=== PATIENT | female | born 1950 | race Caucasian/White ===

== ENCOUNTER 2022-10-22 18:53 | Inpatient (IN) ==
[2022-10-22 19:34] LABS: Basophils % 0.6 % (0.0-0.8); Eosinophils # 0.1 10*3/uL (0.0-0.87); Eosinophils % 1.3 % (0.00-10.9); Hematocrit 39.3 VOL% (35.7-47.0); Hemoglobin 13.2 GM/DL (12.0-16.0); Immature Granulocytes % 0.6 %; Immature Granulocytes Absolute 0.04 #; Lymphocytes # 2.4 10*3/uL (1.4-4.0); Lymphocytes % 37.4 % (21.3-54.2); Mean Corpuscular HGB Conc 33.6 GM/DL (32-36); Mean Corpuscular Volume 90.6 FL (87-102); Mean Platelet Volume 12.1 FL (9.6-12.0); Monocytes # 0.6 10*3/uL (0.11-0.8); Monocytes % 8.6 % (1.7-12.7); Neutrophils % 51.5 % (38.7-73.9); Platelet Count 159 T/CUMM (130-400); Red Blood Count 4.34 MC/CUMM (3.8-5.5); Red Cell Distribution Width 12.6 % (9.3-17.3); White Blood Count 6.36 T/CUMM (4-12)
[2022-10-22 19:41] LABS: INR 0.9; PT Patient Result 10.3 SECS (10.1-12.1); Partial Thromboplastin Time 24.6 SECS (23.7-32.9)
[2022-10-22 19:56] LABS: Osmolality,Calculated 286.4 MOS/KG (273-304); Potassium 3.8 MMOL/L (3.5-5.1); Thyroid Stimulating Hormone 0.945 uIU/ml (0.358-3.74)
[2022-10-22] MEDS ORDERED: HEPARIN/NACL 0.9% 2 UNITS/ML 3,000 UNIT/1,500 ML BAG IV ONE (20:24)
[2022-10-22] MEDS ORDERED: fentaNYL 100 MCG/2 ML VIAL ONE (20:46)
[2022-10-22] MEDS ORDERED: MIDAZOLAM 2 MG/2 ML VIAL ONE (20:46)
[2022-10-22 20:57] VITALS: BP 184/61
[2022-10-22] MEDS ORDERED: hydrALAZINE 20 MG/1 ML VIAL IV PRN (22:38)
[2022-10-22 22:42] LABS: Basophils % 0.6 % (0.0-0.8); Eosinophils # 0.1 10*3/uL (0.0-0.87); Eosinophils % 0.9 % (0.00-10.9); Hematocrit 39.5 VOL% (35.7-47.0); Hemoglobin 13.2 GM/DL (12.0-16.0); Immature Granulocytes % 0.4 %; Immature Granulocytes Absolute 0.03 #; Lymphocytes # 2.4 10*3/uL (1.4-4.0); Lymphocytes % 34.7 % (21.3-54.2); Mean Corpuscular HGB Conc 33.4 GM/DL (32-36); Mean Corpuscular Volume 89.4 FL (87-102); Mean Platelet Volume 11.9 FL (9.6-12.0); Monocytes # 0.7 10*3/uL (0.11-0.8); Monocytes % 9.9 % (1.7-12.7); Neutrophils % 53.5 % (38.7-73.9); Platelet Count 163 T/CUMM (130-400); Red Blood Count 4.42 MC/CUMM (3.8-5.5); Red Cell Distribution Width 12.5 % (9.3-17.3); White Blood Count 6.77 T/CUMM (4-12)
[2022-10-22] MEDS ORDERED: ACETAMINOPHEN 325 MG TABLET PO PRN (22:42)
[2022-10-22] MEDS ORDERED: NITROGLYCERIN SL 0.4 MG TABLET SL PRN (23:00)
[2022-10-22] MEDS ORDERED: [UNRECOGNIZED DRUG - OTHER] PO PRN (23:00)
[2022-10-22 23:09] LABS: Calcium 9.4 MG/DL (8.5-10.1); Osmolality,Calculated 284.4 MOS/KG (273-304); Potassium 3.8 MMOL/L (3.5-5.1); Thyroid Stimulating Hormone 0.889 uIU/ml (0.358-3.74)
[2022-10-23] MEDS: INSULIN LISPRO 100 UNIT/ML SUBCUT SCH ×5 (00:50→23:35)
[2022-10-23] MEDS: MORPHINE 2 MG/1 ML SYRINGE IV PRN (01:55)
[2022-10-23 05:32] LABS: Albumin 3.6 G/DL (3.4-5.0); Bilirubin,Total 0.5 MG/DL (0.20-1.00); Calcium 9.3 MG/DL (8.5-10.1); Osmolality,Calculated 288.4 MOS/KG (273-304); Potassium 3.8 MMOL/L (3.5-5.1); Total Protein 6.8 G/DL (6.4-8.2)
[2022-10-23] MEDS: THYROID 60 MG TABLET PO SCH (06:21)
[2022-10-23] MEDS ORDERED: CLOPIDOGREL 75 MG TABLET PO SCH (09:00)
[2022-10-23] MEDS: OLMESARTAN 20 MG TABLET PO SCH (09:42)
[2022-10-23] MEDS: ASPIRIN CHEW 81 MG TABLET PO SCH (09:42)
[2022-10-23] MEDS: ENOXAPARIN 40 MG/0.4 ML SYRINGE SUBCUT SCH (09:42)
[2022-10-23] MEDS: CHLORTHALIDONE 25 MG TABLET PO SCH (09:43)
[2022-10-23] MEDS: CHOLECALCIFEROL 1,000 UNIT TABLET PO SCH (09:43)
[2022-10-23] MEDS: PANTOPRAZOLE 40 MG TABLET PO SCH (09:43)
[2022-10-23] MEDS: ISOSORBIDE MONONITRATE 30 MG TABLET PO SCH ×2 (09:43→20:34)
[2022-10-23] MEDS ORDERED: DEXTROSE 10% 250 ML BAG IV PRN (09:49)
[2022-10-23] MEDS ORDERED: GLUCAGON 1 MG VIAL IM PRN (09:49)
[2022-10-23] MEDS: ONDANSETRON 4 MG/2 ML VIAL IV PRN (13:00)
[2022-10-23] MEDS: LACTATED RINGERS 1,000 ML IV SCH (18:00)
[2022-10-23] MEDS: ATORVASTATIN 80 MG TABLET PO SCH (20:34)
[2022-10-24] MEDS: LACTATED RINGERS 1,000 ML IV SCH ×2 (03:41→17:03)
[2022-10-24] MEDS: ONDANSETRON 4 MG/2 ML VIAL IV PRN (05:10)
[2022-10-24] MEDS: MORPHINE 2 MG/1 ML SYRINGE IV PRN (05:10)
[2022-10-24] MEDS: THYROID 60 MG TABLET PO SCH (05:46)
[2022-10-24] MEDS: INSULIN LISPRO 100 UNIT/ML SUBCUT SCH ×4 (05:52→20:07)
[2022-10-24 08:24] LABS: Basophils % 0.3 % (0.0-0.8); Eosinophils % 0.4 % (0.00-10.9); Hematocrit 41.2 VOL% (35.7-47.0); Immature Granulocytes % 0.3 %; Immature Granulocytes Absolute 0.03 #; Lymphocytes # 3.2 10*3/uL (1.4-4.0); Lymphocytes % 28.9 % (21.3-54.2); Mean Corpuscular Volume 90.9 FL (87-102); Mean Platelet Volume 11.6 FL (9.6-12.0); Monocytes % 8.8 % (1.7-12.7); Neutrophils % 61.3 % (38.7-73.9); Platelet Count 156 T/CUMM (130-400); Red Blood Count 4.53 MC/CUMM (3.8-5.5); Red Cell Distribution Width 12.8 % (9.3-17.3); White Blood Count 11.09 T/CUMM (4-12)
[2022-10-24] MEDS ORDERED: SODIUM CHLORIDE 0.9% 1,000 ML IV SCH (08:30)
[2022-10-24 08:40] LABS: Calcium 9.3 MG/DL (8.5-10.1); Osmolality,Calculated 279.7 MOS/KG (273-304); Potassium 4.4 MMOL/L (3.5-5.1)
[2022-10-24] MEDS ORDERED: ceFAZolin 1,000 MG VIAL IRRIG ONE (09:30)
[2022-10-24] MEDS ORDERED: ceFAZolin 1,000 MG VIAL ONE ×2 (10:01)
[2022-10-24] MEDS ORDERED: LIDOCAINE 1%/EPI INJ 20 ML VIAL ONE (10:01)
[2022-10-24] MEDS ORDERED: HYDROmorphone 1 MG/1 ML SYRINGE ONE (10:04)
[2022-10-24] MEDS ORDERED: MIDAZOLAM 2 MG/2 ML VIAL ONE (10:04)
[2022-10-24] MEDS ORDERED: TISSUE ADHESIVE 1 EACH APPLICATOR TOP ONE (10:32)
[2022-10-24] MEDS ORDERED: GLUCAGON 1 MG VIAL IM PRN (11:17)
[2022-10-24] MEDS ORDERED: DEXTROSE 50% 25 GM/50 ML VIAL IV PRN (11:17)
[2022-10-24] MEDS: OLMESARTAN 20 MG TABLET PO SCH (13:00)
[2022-10-24] MEDS: ASPIRIN CHEW 81 MG TABLET PO SCH (13:00)
[2022-10-24] MEDS: CHLORTHALIDONE 25 MG TABLET PO SCH (13:00)
[2022-10-24] MEDS: ISOSORBIDE MONONITRATE 30 MG TABLET PO SCH ×2 (13:01→20:07)
[2022-10-24] MEDS: ENOXAPARIN 40 MG/0.4 ML SYRINGE SUBCUT SCH (13:01)
[2022-10-24] MEDS: PANTOPRAZOLE 40 MG TABLET PO SCH (13:01)
[2022-10-24] MEDS: CHOLECALCIFEROL 1,000 UNIT TABLET PO SCH (13:01)
[2022-10-24] MEDS: ATORVASTATIN 80 MG TABLET PO SCH (20:07)
[2022-10-25] MEDS: LACTATED RINGERS 1,000 ML IV SCH (03:30)
[2022-10-25 04:29] LABS: Basophils % 0.4 % (0.0-0.8); Eosinophils % 0.2 % (0.00-10.9); Hematocrit 35.7 VOL% (35.7-47.0); Hemoglobin 11.9 GM/DL (12.0-16.0); Immature Granulocytes % 0.3 %; Immature Granulocytes Absolute 0.03 #; Lymphocytes # 3.2 10*3/uL (1.4-4.0); Lymphocytes % 33.6 % (21.3-54.2); Mean Corpuscular HGB Conc 33.3 GM/DL (32-36); Mean Corpuscular Volume 91.5 FL (87-102); Mean Platelet Volume 12.4 FL (9.6-12.0); Monocytes # 0.9 10*3/uL (0.11-0.8); Monocytes % 9.8 % (1.7-12.7); Neutrophils % 55.7 % (38.7-73.9); Platelet Count 126 T/CUMM (130-400); Red Cell Distribution Width 12.9 % (9.3-17.3); White Blood Count 9.49 T/CUMM (4-12)
[2022-10-25 04:53] LABS: Calcium 8.8 MG/DL (8.5-10.1); Osmolality,Calculated 276.8 MOS/KG (273-304); Potassium 3.7 MMOL/L (3.5-5.1)
[2022-10-25] MEDS: THYROID 60 MG TABLET PO SCH (06:10)
[2022-10-25] MEDS: CHOLECALCIFEROL 1,000 UNIT TABLET PO SCH (09:35)
[2022-10-25] MEDS: ASPIRIN CHEW 81 MG TABLET PO SCH (09:35)
[2022-10-25] MEDS: ISOSORBIDE MONONITRATE 30 MG TABLET PO SCH (09:35)
[2022-10-25] MEDS: CHLORTHALIDONE 25 MG TABLET PO SCH (09:35)
[2022-10-25] MEDS: ENOXAPARIN 40 MG/0.4 ML SYRINGE SUBCUT SCH (09:35)
[2022-10-25] MEDS: OLMESARTAN 20 MG TABLET PO SCH (09:35)
[2022-10-25] MEDS: PANTOPRAZOLE 40 MG TABLET PO SCH (09:35)
[2022-10-25] MEDS: INSULIN LISPRO 100 UNIT/ML SUBCUT SCH (09:35)
[2022-10-25] MEDS ORDERED: CLOPIDOGREL 75 MG TABLET PO SCH (13:00)
== END 2022-10-25 11:56 | disposition home or self-care (01) | DRG 244 ==
LOC: N.ED 18:53 → N.CC 21:57 → SUATTDRO 21:57
PROVIDERS: ADMIT Internal Medicine Cardiovascular Disease; ATTEND Internal Medicine Cardiovascular Disease